=== PATIENT | male | born 1995 | race Caucasian/White ===

== ENCOUNTER 2016-09-22 19:11 | Emergency (ER) | payer MEDICAID ==
[2016-09-22 19:22] VITALS: TEMP 97.7
[2016-09-22] MEDS ORDERED: ONDANSETRON 4 MG/2 ML VIAL ONE (20:05)
[2016-09-22] MEDS ORDERED: ONDANSETRON 4 MG/2 ML VIAL IVP ONE ×2 (20:15→21:27)
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
[2016-09-22] MEDS ORDERED: LET GEL TOPICAL 1 EA SYR TP ONE ×2 (21:08→22:17)
[2016-09-22] MEDS ORDERED: CEPHALEXIN 500 MG CAP PO ONE (21:15)
[2016-09-22] MEDS ORDERED: KETOROLAC 15 MG/1 ML SDV IVP ONE (21:28)
[2016-09-22 22:01] VITALS: BP 119/70; PULSE 70; RESP 16; O2SAT 94
== END 2016-09-22 22:01 | disposition home or self-care (01) ==
PROC: 0HQBXZZ Repair Right Upper Arm Skin, External Approach (ICD-10-PCS; principal; 2016-09-22)
DX: S51.011A Laceration without foreign body of right elbow, initial encounter (principal); S20.419A Abrasion of unspecified back wall of thorax, initial encounter; S30.810A Abrasion of lower back and pelvis, initial encounter; S00.03XA Contusion of scalp, initial encounter; F17.200 Nicotine dependence, unspecified, uncomplicated; V00.131A Fall from skateboard, initial encounter; Y99.8 Other external cause status; Y93.51 Activity, roller skating (inline) and skateboarding
CPT/HCPCS: 96374; J1885; J2405